=== PATIENT | female | born 1965 | race Caucasian/White ===

== ENCOUNTER 2017-12-04 07:07 | Emergency (ER) | payer OTHER ==
--- NOTE | 2017-12-04 07:45 | ED ---
Throat Pain/Nasal Congestion - HPI Summary HPI Summary: 52 yr old female with the complaint of sore throat. Onset three days ago. She has had mild cold and cough symptoms for a little longer. She states she looked at her throat yesterday in mirror and noticed it was rather red. She denies fever, chills, drooling. Denies other complaints. She missed work on Monday and needs a note for today as well. - History of Current Complaint Chief Complaint: UCRespiratory Time Seen by Provider: 12/04/17 07:34 - Allergies/Home Medications Allergies/Adverse Reactions: Allergies Allergy/AdvReac Type Severity Reaction Status Date / Time No Known Allergies Allergy Verified 12/04/17 07:26 Home Medications: Home Medications Chlorthalidone TAB* [Hygroton TAB*] 1 tab DAILY 12/04/17 [History Confirmed 10/09] Enalapril TAB* [Vasotec TAB*] 1 tab BID 12/04/17 [History Confirmed 12/04/17] glipiZIDE TAB* [Glucotrol TAB*] 5 mg DAILY 12/04/17 [History Confirmed 12/04/17] metFORMIN* [Glucophage 500 MG TAB *] 500 mg PO BID 12/04/17 [History Confirmed 12/04/17] PMH/Surg Hx/FS Hx/Imm Hx Endocrine/Hematology History: Reports: Hx Diabetes - TYPE 2 Cardiovascular History: Reports: Hx Hypertension - Surgical History Surgery Procedure, Year, and Place: Hysterectomy. x2 Infectious Disease History: No Infectious Disease History: Denies: Traveled Outside the [place] in Last 30 Days - Social History Alcohol Use: Weekly Alcohol Amount: 1xweek Substance Use Type: Reports: None Smoking Status (MU): Current Some Day Smoker Type: Cigarettes Amount Used/How Often: only w/ drinks- 1xweek Length of Time of Smoking/Using Tobacco: 20 years Have You Smoked in the Last Year: Yes Review of Systems Negative: Fever, Chills Positive: Sore Throat, Nasal Discharge All Other Systems Reviewed And Are Negative: Yes Physical Exam Triage Information Reviewed: Yes Vital Signs On Initial Exam: Initial Vitals Temp Pulse Resp BP Pulse Ox 97 F 64 16 160/89 98 12/04/17 07:28 12/04/17 07:28 12/04/17 07:28 12/04/17 07:28 12/04/17 07:28 Vital Signs Reviewed: Yes Appearance: Positive: Well-Appearing, No Pain Distress Skin: Positive: Warm, Skin Color Reflects Adequate Perfusion Head/Face: Positive: Normal Head/Face Inspection Eyes: Positive: EOMI ENT: Positive: Pharyngeal erythema, TMs normal Neck: Positive: Nontender, No Lymphadenopathy Respiratory/Lung Sounds: Positive: Clear to Auscultation, Breath Sounds Present Cardiovascular: Positive: RRR. Negative: Murmur Abdomen Description: Positive: Nontender Musculoskeletal: Positive: Strength/ROM Intact Neurological: Positive: Sensory/Motor Intact, Alert, Oriented to Person Place, Time, CN Intact II-III Psychiatric: Positive: Normal - Yousif Coma Scale Best Eye Response: 4 - Spontaneous Best Motor Response: 6 - Obeys Commands Best Verbal Response: 5 - Oriented Coma Scale Total: 15 Diagnostics - Vital Signs Vital Signs Temp Pulse Resp BP Pulse Ox 12/04/17 07:28 97 F 64 16 160/89 98 - Laboratory Lab Statement: Any lab studies that have been ordered have been reviewed, and results considered in the medical decision making process. EENT Course/Dx - Course Course Of Treatment: 52 yr old with sore throat. She has elevated BP. Did not take her meds for three days, but she did just take it this morning. She will follow up with PMD for her BP. Rapid strep negative. - Diagnoses Provider Diagnoses: Hypertension, Pharyngitis Discharge - Discharge Plan Condition: Good Disposition: HOME Patient Education Materials: Pharyngitis (ED), Hypertension (ED) Forms: *Work Release Referrals: Nissa Kirk MD [Primary Care Provider] - 2 Days
== END 2017-12-04 08:00 | disposition home or self-care (01) ==
LOC: UCCORT 07:07
DX: I10 Essential (primary) hypertension (principal); Z91.14 Patient's other noncompliance with medication regimen; J02.9 Acute pharyngitis, unspecified; E11.9 Type 2 diabetes mellitus without complications; Z79.84 Long term (current) use of oral hypoglycemic drugs; F17.210 Nicotine dependence, cigarettes, uncomplicated
CPT/HCPCS: 87651; 99201; G0463

== ENCOUNTER 2019-09-13 07:10 | Emergency (ER) | payer OTHER ==
--- OUTSIDE RECORDS SUMMARY | 2019-09-13 07:21 | XMS REPORT | Continuity of Care Document ---
:1965 External Reference #:[id number] Author Name Nissa Kirk MD Address [address] [place] [id number] Care Team Providers Name Role Phone Bela Iraheta MD - Gynecologic Care Team Information Driving Teacher [phone] Oncology SyPatrice obrien - Gastroenterology Care Team Information Driving Teacher Bandar Black JR, MD - Care Team Information Driving Teacher [phone] Gynecologic Oncology Problems Active Problems Provider Date Hypokalemia Nissa Kirk MD Onset: 05/09/2013 Type 2 diabetes mellitus Nissa Kirk MD Onset: 05/09/2013 Anxiety state Nissa Kirk MD Onset: 12/12/2011 Hyperlipidemia Nissa Kirk MD Onset: 09/06/2007 Benign essential hypertension Nissa Kirk MD Onset: 07/25/2007 History of malignant neoplasm of ovary Nissa Kirk MD Onset: 12/19/2018 Mitral valve disorder Nissa Kirk MD Onset: 07/15/2019 Social History Type Date Description Comments Sex Unknown Tobacco Use Start: Unknown End: Former Cigarette Smoker Unknown Smoking Status Reviewed: 08/15/19 Former Cigarette Smoker ETOH Use Occasionally consumes alcohol Tobacco Use Start: Unknown End: Patient is a former occasionally smokes Unknown smoker socially Exercise Walks daily Type/Frequency Allergies, Adverse Reactions, Alerts Description No Known Drug Allergies Medications Active Medications SIG Qnty Indications Ordering Provider Date Bupropion Hydrochloride 1 by mouth 90tabs F41.1 Nissa Kirk, 2019 ER (XL) every day MD 300mg Tablets ER 24HR F41.9 Escitalopram Oxalate 1 by mouth every 90tabs E89.41 Nissa Kirk MD 20mg day Tablets F41.1 F41.9 Glipizide ER 1 by mouth every 90Tabs E11.9 Nissa Kirk MD 03/05/2015 2.5mg Tablets ER in the morning 24HR Metformin HCL 1 by mouth twice 180tabs E11.9 Nissa Kirk MD 07/18/2014 500mg Tablets a day Potassium Chloride ER 3 by mouth every 270tabs E87.6 Nissa Kirk MD 10Meq day Tablets ER Atorvastatin Calcium take 1 tablet 90tabs E78.5 Nissa Kirk MD 2012 10mg every evening Tablets Chlorthalidone 1 by mouth every 90tabs I10 Nissa Kirk MD 12/12/2011 25mg Tablets in the morning Enalapril Maleate 1 by mouth twice 180tabs I10 Nissa Kirk MD 2007 20mg Tablets a day Acetaminophen Extra 2 tabs by mouth Unknown Strength every 6 hours as 500mg Tablets needed Immunizations CPT Code Status Date Vaccine Reaction Lot # [id number] Given 07/23/2018 Afluria Or Fluvirin Flu Vac Intramuscular 49366 Given 01/22/2018 Pneumococcal 23 Immunization Pt tolerated well [id number] Adult Or Immunosuppressed Patient Q2039 Given 08/04/2017 Flu Vaccine NOS Q2039 Given 08/17/2016 Flu Vaccine NOS [id number] Refused 12/19/2018 Shingrix (Shingles) Zoster Vaccine HZV, Recombinant , Subunit, Adj [id number] Refused 11/25/2014 Immunization Td 7 Yrs Or Older Vital Signs Date Vital Result Comment 08/15/2019 10:24am Weight 186.00 lb Heart Rate 78 /min BP Systolic 138 mmHg BP Diastolic 82 mmHg Respiratory Rate 18 /min Height 62.5 inches 5'2.50" O2 % BldC Oximetry 98 % Ra BMI (Body Mass Index) 33.5 kg/m2 07/15/2019 1:06pm Weight 186.00 lb Heart Rate 78 /min BP Systolic 132 mmHg BP Diastolic 80 mmHg Respiratory Rate 18 /min Height 62.5 inches 5'2.50" O2 % BldC Oximetry 98 % Ra BMI (Body Mass Index) 33.5 kg/m2 Results Test Date Facility Test Result H/L Range Note Laboratory test finding 08/15/2019 [facility] <pending> CRP (C-Reactive) <pending> Liver Function 06/03/2019 [facility] Total Protein 7.5 g/ dL Normal 6.4-8.2 1 Tests (315)- - Albumin 3.5 g/dL Normal 3.4-5.0 Globulin 4.0 g/dL Normal 1.9-4.3 Alb/Glob 0.9 ratio Bilirubin,Total 0.5 mg/dL Normal 0.2-1.0 Bilirubin,Direct < 0.1 mg/dL Normal 0.0-0.2 Bilirubin,Indirect 0.4 mg/dL Normal 0.0-0.9 Sgot/Ast 17 U/L Normal 15-37 SGPT/Alt 35 U/L Normal 12-78 Alkaline Phosphatase 75 U/L Normal 45-117 Basic Metabolic Panel 06/03/2019 [facility] Glucose 213 mg/dL High 74-106 (315)- - BUN 11 mg/dL Normal 7-18 Creatinine 0.7 mg/dL Normal 0.6-1.3 Glom Filtration Rate, Estimate >60 mL/min >60 If >60 mL/min >60 2 BUN/Creat 15.7 ratio Sodium 138 mmol/L Normal 136-145 Potassium 3.5 mmol/L Normal 3.5-5.1 Chloride 102 mmol/L Normal 98-107 Carbon Dioxide 31 mmol/L Normal 21-32 Anion Gap 5 mEq/L Low 8-16 Calcium 8.9 mg/dL Normal 8.5-10.1 LDL Cholesterol 06/03/2019 [facility] Cholesterol 182 mg/ dL <200 3 Profile (315)- - Triglycerides 177 mg/dL High <150 4 HDL Cholesterol 35 mg/dL Low >40 5 LDL-Cholesterol 112 mg/dL < 100 6 Glycohemoglobin A1c 06/03/2019 [facility] Glycohemoglobin 8.5 % High 4.2-6.3 7 (315)- - (A1c) eAG 197 mg/dL 1 E11.9 E78.5 2 Note: Persistent reduction for 3 months or more in an eGFR <60 mL/min/1.73 m2 defines CKD. Patients with eGFR values >/=60 mL/min/1.73 m2 may also have CKD if evidence of persistent proteinuria is present. The original MDRD equation for estimated GFR is not valid for patients less than 18 years of age. Additional information may be found at www.kdoqi.org. 3 Reference Guidelines*: Desirable: ........... < 200 mg/dL Borderline High: ..... 200-239 mg/dL High: ................ >= 240 mg/dL * The National Cholesterol Education Program (NCEP) 4 Reference Guidelines*: Normal: ............. < 150 mg/dL Borderline High: .... 150-199 mg/dL High: ............... 200-499 mg/dL Very High: .......... > 500 mg/dL * Source: National Cholesterol Education Program (NCEP) 5 Reference Guidelines*: Low HDL: ..... < 40 mg/dL Normal: ..... 40-60 mg/dL Desirable: ... > 60 mg/dL *The National Cholesterol Education Program(NCEP) 6 Reference Guidelines*: Optimal:........... <100 mg/dL Near Optimal....... 100-129 mg/dL Borderline High.... 130-159 mg/dL High............... 160-189 mg/dL Very High.......... >=190 mg/dL * Source: National Cholesterol Education Program (NCEP) 7 Elevated levels of HbA1c suggest the need for more aggressive treatment of glycemia. The [place] [employer] Association recommends that a primary goal of therapy should be a HbA1c of <7% and that physicians should re-evaluate the treatment regimen in patients with HbA1c values consistently >8%. Procedures Date Code Description Status 06/13/2019 39206 ECHO Transthoracis 2D W Spectral Doppler Completed 05/06/2019 96970440 Mammogram Completed 05/02/2018 [id number] Mammogram Completed 08/04/2017 [id number] Colonoscopy Completed 01/22/2016 [id number] Diabetic Retinal Eye Exam Completed Medical Devices Description No Information Available Encounters Type Date Location Provider Dx Diagnosis Office Visit 07/15/2019 [facility] Nissa Kirk MD I10 Essential (primary) 1:00p hypertension E66.9 Obesity, unspecified I34.0 Nonrheumatic mitral (valve) insufficiency Z68.34 Body mass index (BMI) 34.0-34.9, adult Office Visit 2019 1:00p [facility] Nissa Kirk MD E66.9 Obesity, unspecified Z13.31 Encounter for screening for depression E11.9 Type 2 diabetes mellitus without complications Z85.43 Personal history of malignant neoplasm of ovary E87.6 Hypokalemia E78.5 Hyperlipidemia, unspecified I10 Essential (primary) hypertension F41.9 Anxiety disorder, unspecified R01.1 Cardiac murmur, unspecified Z68.34 Body mass index (BMI) 34.0-34.9, adult Assessments Date Code Description Provider 08/15/2019 R51 Headache Nissa Kirk MD 08/15/2019 R11.2 Nausea with vomiting, unspecified Nissa Kirk MD 08/15/2019 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 Nissa Kirk MD 08/15/2019 R51 Headache Schedule, Laboratory 07/15/2019 I10 Essential (primary) hypertension Nissa Kirk MD 07/15/2019 E66.9 Obesity, unspecified Nissa Kirk MD 07/15/2019 I34.0 Nonrheumatic mitral (valve) insufficiency Nissa Kirk MD 07/15/2019 Z68.34 Body mass index (BMI) 34.0-34.9, adult Nissa Kirk MD 06/13/2019 E11.9 Type 2 diabetes mellitus without complications Mobile ECHO 06/13/2019 E78.5 Hyperlipidemia, unspecified [facility] E[facility] 06/13/2019 I10 Essential (primary) hypertension Mobile ECHO 06/13/2019 R01.1 Cardiac murmur, unspecified [facility] 2019 E66.9 Obesity, unspecified Nissa Kirk MD 2019 Z13.31 Encounter for screening for depression Nissa Kirk MD 2019 E11.9 Type 2 diabetes mellitus without complications Nissa Kirk MD 2019 Z85.43 Personal history of malignant neoplasm of Nissa Kirk MD ovary 2019 E87.6 Hypokalemia Nissa Kirk MD 2019 E78.5 Hyperlipidemia, unspecified Nissa Kirk MD 2019 I10 Essential (primary) hypertension Nissa Kirk MD 2019 F41.9 Anxiety disorder, unspecified Nissa Kirk MD 2019 R01.1 Cardiac murmur, unspecified Nissa Kirk MD 2019 Z68.34 Body mass index (BMI) 34.0-34.9, adult Nissa Kirk MD Plan of Treatment Future Appointment(s):09/05/2019 1:00 pm - Nissa Kirk MD at [facility]08/15/2019 - Nissa Kirk, MDR51 HeadacheNew Xrays:MRI Brain Without Contrast, Ordered: 08/15/19Comments:new onset headaches - unlike migraines diagnosed years ago. check MRI of the brain.Follow up:Labs today Follow up as lzznapoeiM07.2 Nausea with vomiting, unspecifiedComments:Patient was informed that nausea with vomiting could be a part of her headaches. check labs today to look for signs of inflammation and infection.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Comments: check MRI brain to rule out brain mets Functional Status Description No Information Available Mental Status Description No Information Available Referrals Description No Information Available
--- OUTSIDE RECORDS SUMMARY | 2019-09-13 07:21 | XMS REPORT | Continuity of Care Document ---
:1965 External Reference #:[id number] Author Name Nissa Kirk MD Address [address] [place] [id number] Care Team Providers Name Role Phone Bela Iraheta MD - Gynecologic Care Team Information Running Rigger Oncology SyPatrice obrien - Gastroenterology Care Team Information Running Rigger [phone] Bandar Black JR, MD - Care Team Information Running Rigger [phone] Gynecologic Oncology Problems Active Problems Provider Date Hypokalemia Nsisa Kirk MD Onset: 05/09/2013 Type 2 diabetes [...] Former Cigarette Smoker Unknown Smoking Status Reviewed: 12/19/18 Former Cigarette Smoker ETOH Use Occasionally consumes [...] Code Status Date Vaccine Reaction Lot # [id number] Given 07/23/2018 Afluria Or Fluvirin Flu Vac Intramuscular 77116 Given 01/22/2018 Pneumococcal 23 Immunization Pt tolerated well [id number] Adult Or Immunosuppressed Patient Q2039 Given 08/04/2017 Flu Vaccine NOS Q2039 Given 08/17/2016 Flu Vaccine NOS [id number] Refused 12/19/2018 Shingrix (Shingles) Zoster Vaccine HZV, Recombinant , Subunit, Adj [id number] Refused 11/25/2014 Immunization Td 7 Yrs Or Older Vital Signs Date Vital Result Comment 07/15/2019 1:06pm Weight 186.00 lb Heart Rate 78 /min BP Systolic 132 mmHg BP Diastolic 80 mmHg Respiratory Rate 18 /min Height 62.5 inches 5'2.50" O2 % BldC Oximetry 98 % Ra BMI (Body Mass Index) 33.5 kg/m2 2019 12:59pm Weight 190.00 lb Heart Rate 83 /min BP Systolic 144 mmHg BP Diastolic 84 mmHg Respiratory Rate 18 /min Height 62.5 inches 5'2.50" O2 % BldC Oximetry 98 % Ra BMI (Body Mass Index) 34.2 kg/m2 Results Test Date Facility Test Result H/L Range Note Liver Function 06/03/2019 [facility] Total Protein 7.5 g/ dL Normal 6.4-8.2 1 Tests (315)- - Albumin 3.5 g/dL Normal 3.4-5.0 Globulin 4.0 g/dL Normal 1.9-4.3 Alb/Glob 0.9 ratio Bilirubin,Total 0.5 mg/dL Normal 0.2-1.0 Bilirubin,Direct < 0.1 mg/dL Normal 0.0-0.2 Bilirubin,Indirect 0.4 mg/dL Normal 0.0-0.9 Sgot/Ast 17 U/L Normal 15-37 SGPT/Alt 35 U/L Normal 12-78 Alkaline Phosphatase 75 U/L Normal 45-117 Basic Metabolic Panel 06/03/2019 [facility] Glucose 213 mg/dL High 74-106 (315)- [...] 8.9 mg/dL Normal 8.5-10.1 LDL Cholesterol 06/03/2019 [facility] Cholesterol 182 mg/ dL <200 3 Profile (315)- - Triglycerides 177 mg/dL High <150 4 HDL Cholesterol 35 mg/dL Low >40 5 LDL-Cholesterol 112 mg/dL < 100 6 Glycohemoglobin A1c 06/03/2019 [facility] Glycohemoglobin 8.5 % High 4.2-6.3 7 [...] for more aggressive treatment of glycemia. The [place] [employer] recommends that a primary goal of therapy should be a HbA1c of <7% and that physicians should re-evaluate the treatment regimen in patients with HbA1c values consistently >8%. Procedures Date Code Description Status 06/13/2019 52985 ECHO Transthoracis 2D W Spectral Doppler Completed 05/06/2019 [id number] Mammogram Completed 05/02/2018 [id number] Mammogram Completed 08/04/2017 [id number] Colonoscopy Completed 01/22/2016 [id number] Diabetic Retinal Eye Exam Completed Medical Devices Description No Information Available Encounters Type Date Location Provider Dx Diagnosis Office Visit 2019 1:00p [facility] Nissa iKrk MD E66.9 Obesity, unspecified Z13.31 Encounter for screening for depression E11.9 Type 2 diabetes mellitus without complications Z85.43 Personal history of malignant neoplasm of ovary E87.6 Hypokalemia E78.5 Hyperlipidemia, unspecified I10 Essential (primary) hypertension F41.9 Anxiety disorder, unspecified R01.1 Cardiac murmur, unspecified Z68.34 Body mass index (BMI) 34.0-34.9, adult Assessments Date Code Description Provider 07/15/2019 I10 Essential (primary) hypertension Nissa Kirk MD 07/15/2019 E66.9 Obesity, unspecified Nissa Kirk MD 07/15/2019 I34.0 Nonrheumatic mitral (valve) insufficiency Nissa Kirk MD 06/13/2019 E11.9 Type 2 [...] Personal history of malignant neoplasm of ovary Nissa Kirk MD 2019 E87.6 Hypokalemia Nissa Kirk MD 2019 E78.5 Hyperlipidemia, unspecified Nissa Kirk MD 2019 I10 Essential (primary) hypertension Nissa Kirk MD 2019 F41.9 Anxiety disorder, unspecified Nissa Kirk MD 2019 R01.1 Cardiac murmur, unspecified Nissa Kirk MD 2019 Z68.34 Body mass index (BMI) 34.0-34.9, adult Nissa Kirk MD Plan of Treatment Future Appointment(s):09/05/2019 1:00 pm - iNssa Kirk MD at [facility]07/15/2019 - Nissa Kirk MDI10 Essential (primary) hypertensionComments:at goal on current medication with regular use of medication - continue this.E66.9 Obesity , unspecifiedComments:She has lost 4 pounds since the last office visit. She is exercising more and eating healthy. reinforced lifestyle changes.I34.0 Nonrheumatic mitral (valve) insufficiencyComments:She had an echocardiogram done which showed normal wall thickening. Left atrium dilated mildly and mild to moderate tricuspid valve. This will be treated with blood pressure control. Discussed extensively about the results of her echocardiogram.We will repeat her echocardiogram in 1 year, due to nodularity of the mitral valve to evaluate for progression of symptoms. Functional Status Description No Information Available Mental Status Description No Information Available Referrals Description No Information Available
[2019-09-13 07:27] VITALS: BP 169/80
[2019-09-13] MEDS ORDERED: Albuterol/Ipratropium NEB.SOL* Albuterol 2.5 MG/Ipratropium 0.5 MG 3 ML INH ONE (07:39)
[2019-09-13] MEDS ORDERED: predniSONE TAB* 20 MG PO ONE (07:39)
--- NOTE | 2019-09-13 08:19 | ED ---
Respiratory - HPI Summary HPI Summary: 54 yr old female with the complaint of cough, SOB, wheezing, runny nose, post nasal drip. No sinus pain or pressure. She has been ill for about 5-6 days. Symptoms are moderate. No chest pain. - History of Current Complaint Chief Complaint: UCGeneralIllness Stated Complaint: COUGH CONGESTION Time Seen by Provider: 09/13/19 07:31 Pain Intensity: 0 - Allergy/Home Medications Allergies/Adverse Reactions: Allergies Allergy/AdvReac Type Severity Reaction Status Date / Time No Known Allergies Allergy Verified 09/13/19 07:27 Home Medications: Home Medications Atorvastatin* [Lipitor*] 10 mg PO 1700 09/13/19 [History Confirmed 09/13/19] Potassium Gluconate [Potassium] 600 mg PO DAILY 09/13/19 [History Confirmed ] PMH/Surg Hx/FS Hx/Imm Hx Endocrine/Hematology History: Reports: Hx Diabetes - TYPE 2 Cardiovascular History: Reports: Hx Hypertension - Cancer History Cancer Type, Location and Year: ovarian cancer- 4 yrs ago - Surgical History Surgery Procedure, Year, and Place: Hysterectomy. x2 Infectious Disease History: No Infectious Disease History: Denies: Traveled Outside the [place] in Last 30 Days - Family History Known Family History: Positive: None - Social History Occupation: Employed Full-time Alcohol Use: Occasionally Alcohol Amount: 1xweek Substance Use Type: Reports: None Smoking Status (MU): Current Some Day Smoker Type: Cigarettes Amount Used/How Often: only w/ drinks- 1xweek Length of Time of Smoking/Using Tobacco: 20 years Have You Smoked in the Last Year: Yes Review of Systems Positive: Nasal Discharge Positive: Cough All Other Systems Reviewed And Are Negative: Yes Physical Exam Triage Information Reviewed: Yes Vital Signs On Initial Exam: Initial Vitals Temp Pulse Resp BP Pulse Ox 97.4 F 79 18 169/80 97 09/13/19 07:21 09/13/19 07:21 09/13/19 07:21 09/13/19 07:21 09/13/19 07:21 Vital Signs Reviewed: Yes Appearance: Positive: Well-Appearing, No Pain Distress Skin: Positive: Warm, Skin Color Reflects Adequate Perfusion Head/Face: Positive: Normal Head/Face Inspection Eyes: Positive: EOMI ENT: Positive: Pharyngeal erythema, Nasal congestion, Nasal drainage Neck: Positive: Nontender Respiratory/Lung Sounds: Positive: Decreased Breath Sounds Cardiovascular: Positive: RRR. Negative: Murmur Abdomen Description: Negative: Distended Musculoskeletal: Positive: Strength/ROM Intact Neurological: Positive: Sensory/Motor Intact, Alert, Oriented to Person Place, Time, CN Intact II-III, Speech Normal Psychiatric: Positive: Normal Diagnostics - Vital Signs Vital Signs Temp Pulse Resp BP Pulse Ox 09/13/19 07:21 97.4 F 79 18 169/80 97 - Laboratory Lab Statement: Any lab studies that have been ordered have been reviewed, and results considered in the medical decision making process. Disposition - Course Course Of Treatment: 54 yr old with acute bronchitis. Rx pred, and mdi. FU with pmd - Diagnoses Provider Diagnoses: Acute bronchitis, Hypertension Discharge ED - Sign-Out/Discharge Documenting (check all that apply): Patient Departure All imaging exams completed and their final reports reviewed: Yes - Discharge Plan Condition: Good Disposition: HOME Prescriptions: Albuterol HFA INHALER* [Ventolin HFA Inhaler*] 1 - 2 puff INH Q6H PRN #1 mdi PRN Reason: Cough predniSONE TAB* [Deltasone 20 MG TAB*] 40 mg PO DAILY #8 tab Patient Education Materials: Acute Bronchitis (ED), Hypertension (ED) Forms: *Work Release Referrals: Nissa Kirk MD [Primary Care Provider] - 2 Days - Billing Disposition and Condition Condition: GOOD Disposition: Home
== END 2019-09-13 08:33 | disposition home or self-care (01) ==
LOC: UCCORT 07:10
DX: J20.9 Acute bronchitis, unspecified (principal); I10 Essential (primary) hypertension; E11.9 Type 2 diabetes mellitus without complications; R09.81 Nasal congestion; F17.210 Nicotine dependence, cigarettes, uncomplicated
CPT/HCPCS: 71046; 99213; A9270-GY; G0463; J7512